=== PATIENT | male | born 1935 | race Caucasian/White ===

== ENCOUNTER → 2017-04-11 | Outpatient (CLI) | payer MEDICARE ==
[2017-04-11 11:12] LABS: URINE BILIRUBIN - DIPSTICK NEGATIVE (NEG); URINE BLOOD NEGATIVE (NEG)
[2017-04-11 11:22] LABS: URINE SQUAMOUS CELLS OCC #/hpf (OCC)
== END ==
LOC: LAB 10:55
PROVIDERS: Family Medicine
DX: N28.9 Disorder of kidney and ureter, unspecified (principal)